=== PATIENT | male | born 1955 | race Caucasian/White ===

== ENCOUNTER → 2016-12-22 | Outpatient (CLI) | payer OTHER | END | disposition home or self-care (01) | LOC: CFH 12:14 | PROVIDERS: ATTEND Nurse Practitioner Family | DX: M51.36 Other intervertebral disc degeneration, lumbar region (principal); M16.12 Unilateral primary osteoarthritis, left hip; M47.897 Other spondylosis, lumbosacral region; M48.06 Spinal stenosis, lumbar region | CPT/HCPCS: 72114 ==

== ENCOUNTER → 2019-12-02 | Outpatient (CLI) | payer OTHER | END | disposition home or self-care (01) | LOC: CFH 14:05 | PROVIDERS: ATTEND Physician Assistant Surgical | DX: M51.36 Other intervertebral disc degeneration, lumbar region (principal); M48.061 Spinal stenosis, lumbar region without neurogenic claudication | CPT/HCPCS: 72100 ==

== ENCOUNTER → 2020-01-09 | Outpatient (CLI) | payer OTHER | END | disposition home or self-care (01) | LOC: CFH 10:35 | PROVIDERS: ATTEND Physician Assistant Surgical | DX: M43.27 Fusion of spine, lumbosacral region (principal); M48.061 Spinal stenosis, lumbar region without neurogenic claudication | CPT/HCPCS: 72110 ==